=== PATIENT | female | born 1935 | race Caucasian/White ===

== ENCOUNTER → 2016-12-16 | Outpatient (CLI) | payer MEDICARE, BC ==
--- NOTE | 2016-12-16 10:54 | BD ---
EXAMINATION TYPE: MG DEXA axial skeleton. DATE OF EXAM: 12/16/2016 COMPARISON: 2014 CLINICAL HISTORY: POST MENOPAUSAL Height: 5'1 /2 Weight: 142 FRAX RISK QUESTIONS: Alcohol (3 or more units per day): no Family History (Parent hip fracture): no Glucocorticoids (More than 3mos): no (Ex: prednisone, prednisolone, methylprednisolone, dexamethasone, and hydrocortisone). History of Fracture in Adulthood: yes Secondary Osteoporosis: 1. Type 1 Diabetes: no 2. Hyperthyroidism: no 3. Menopause before 45: no 4. Malnutrition: no 5. Chronic liver disease: no Rheumatoid Arthritis: no Current Tobacco Use: no RISK FACTORS HISTORY OF: History of Wrist Fracture: rt When: 2012 Surgery to (right/): When: 2012 Postmenopausal woman: MEDICATIONS: Thyroid Medications: Which medication: Synthroid How Lon years Additional Medications: Additional History: post menopausal EXAM MEASUREMENTS: Bone mineral densitometry was performed using the [employer] System. Bone mineral density as measured about the Lumbar spine is: ----- L1-L4(G/cm2): 1.043 T Score Values are as follows: ----- L2: -1.5 ----- L3: -1.5 ----- L4: -0.9 ----- L1-L4: -1.1 Bone mineral density has: Decreased -0.3% since study of: 10/04/2014 Bone mineral density about the R hip (g/cm2): 0.852 Bone mineral density about the L hip (g/cm2): 0.767 T Score values are as follows: -----R Neck: -1.3 -----L Neck: -1.9 -----R Total: -0.8 -----L Total: -1.4 Bone mineral density has: Increased 3.8% since study of: 10/04/2014 IMPRESSION: Osteopenia (T Score between -2.5 and -1 as noted by T score values:L1-L4, Kervin Hips There is slightly increased risk of fracture and the patient may be considered for treatment. Re-Screen 2-5 years. NOTE: T-SCORE=SD OF THE YOUNG ADULT MEAN.
== END | disposition home or self-care (01) ==
LOC: RADBDWWP 07:48
PROVIDERS: ATTEND Family Medicine
DX: M85.80 Other specified disorders of bone density and structure, unspecified site (principal); Z78.0 Asymptomatic menopausal state
CPT/HCPCS: 77080

== ENCOUNTER → 2021-07-18 | Outpatient (CLI) | payer MEDICARE, BC ==
--- NOTE | 2021-07-18 14:47 | BD ---
EXAMINATION TYPE: Axial Bone Density DATE OF EXAM: 07/18/2021 COMPARISON: NONE CLINICAL HISTORY: 85 years year old Female. ICD-10 CODE: Z78.0 ASYMPTOMATIC MENOPAUSAL STATE Height: 5 FT 1 IN Weight: 140 FRAX RISK QUESTIONS: Alcohol (3 or more units per day): NO Family History (Parent hip fracture): NO Glucocorticoids (More than 3mos): NO (Ex: prednisone, prednisolone, methylprednisolone, dexamethasone, and hydrocortisone). History of Fracture in Adulthood: YES Secondary Osteoporosis: 1. Type 1 Diabetes: NO 2. Hyperthyroidism: NO 3. Menopause before 45: NO 4. Malnutrition: NO 5. Chronic liver disease: NO Rheumatoid Arthritis: NO Current Tobacco Use: NO RISK FACTORS HISTORY OF: History of Wrist Fracture: RT WRIST When: 10 YEARS AGO Surgery to Spine/Hip(right/left)/Wrist (right/left): RT WRIST When: 10 YEARS AGO Family History of Osteoporosis: NO Active: YES Diet low in dairy products/other sources of calcium: NO Postmenopausal woman: YES Take estrogen and/or progesterone medications: NONE NOW Lost more than 2 inches in height since high school: NO Frequent falls: NO Poor Health: GOOD Hyperparathyroidism: NO Adrenal Insufficiency: NO MEDICATIONS: Thyroid Medications: YES Which medication: LEVOTHYROXINE How Lon YEARS Additional Medications: LEVOTHYROXINE, SIMVASTATIN, Additional History: EXAM MEASUREMENTS: Bone mineral densitometry was performed using the [employer] System. Bone mineral density as measured about the Lumbar spine is: ----- L1-L4(G/cm2): 1.061 T Score Values are as follows: ----- L1: -0.8 ----- L2: -1.9 ----- L3: -0.8 ----- L4: -0.8 ----- L1-L4: -1.0 Bone mineral density has: INCREASED 1.0 % since study of: 2017 Bone mineral density about the R hip (g/cm2): 0.817 Bone mineral density about the L hip (g/cm2): 0.823 T Score values are as follows: -----R Neck: -1.6 -----L Neck: -1.5 -----R Total: -1.0 -----L Total: -1.2 Bone mineral density has: O CHANGE % since study of: 2017 FRAX%s: The graph provided illustrates a20 % chance for a major osteoporotic fx and a 5.1 % chance f or the hips probability for fx in 10 years time. IMPRESSION: Osteopenia NOTE: T-SCORE=SD OF THE YOUNG ADULT MEAN.
== END | disposition home or self-care (01) ==
LOC: RADBDWWP 13:10
PROVIDERS: ATTEND Family Medicine
DX: M85.89 Other specified disorders of bone density and structure, multiple sites (principal); Z78.0 Asymptomatic menopausal state
CPT/HCPCS: 77080